=== PATIENT | female | born 1960 | race Caucasian/White ===

== ENCOUNTER → 2017-08-15 | Outpatient (CLI) | payer OTHER ==
[~2017-08-15] MED LIST: AMLO5TAB2 PO; Aspirin PO; CALC600T12 PO; CEPH500B PO; CYCL10TA7 PO; GING550C5 PO; GINK60CA2 PO; HYDR-2132 PO; HYDR-309 PO; IRON PO; LEVOTHYROXINE PO; MAGN250T10 PO; NAPR-1192 PO; POTA99TA21 PO; PROP40TA7 PO; SAFF176. PO; SULFAMETHOXAZOLE PO; TRAZ-187 PO; TUMERIC CURCUMIN PO; VITA400C70 PO; VITAMIN D PO
== END | disposition home or self-care (01) ==
LOC: RAH 10:23
PROVIDERS: ATTEND Nurse Practitioner Family
DX: Z01.818 Encounter for other preprocedural examination (principal); E78.2 Mixed hyperlipidemia; I10 Essential (primary) hypertension; E03.8 Other specified hypothyroidism
CPT/HCPCS: 71046

== ENCOUNTER 2021-05-11 07:52 | Day surgery (SDC) | payer OTHER ==
[2021-05-08 10:11] LABS: BASOPHILS % (AUTO) 0.6 % (0.0-5.0); EOSINOPHILS % (AUTO) 4.6 % (0.0-8.0); HEMATOCRIT 39.5 % (36-48); LYMPHOCYTES % (AUTO) 28.6 % (21.0-51.0); MEAN CORPUSCULAR HEMOGLOBIN 31.9 pg (27.0-33.0); MEAN CORPUSCULAR HGB CONC 33.4 g/dL (32.0-36.0); MEAN CORPUSCULAR VOLUME 95.4 fL (79-99); MONOCYTES % (AUTO) 7.7 % (3.0-13.0); NEUTROPHILS % (AUTO) 58.1 % (40.0-77.0); PLATELET COUNT (AUTO) 183 K/uL (130-400); RED BLOOD CELL COUNT(AUTO) 4.14 MIL/uL (4.00-5.50); RED CELL DISTRIBUTION WIDTH 14.7 % (11.0-15.5)
[2021-05-08 10:20] LABS: POTASSIUM 4.4 mmol/L (3.5-5.1)
[2021-05-08 11:44] VITALS: BP 154/64
[2021-05-11] VITALS (14 sets, daily range): BP systolic 113–167; BP diastolic 53–80
[~2021-05-11] VITALS: Ht 167.6 cm; Wt 155.2 kg
[~2021-05-11 07:52] MED LIST changes: -AMLO5TAB2 PO; +ARTICHOKE PO; +ASPI-1197 PO; -Aspirin PO; +BEETS PO; -CALC600T12 PO; -CEPH500B PO; +CINNAMON PO; -CYCL10TA7 PO; +FISH OIL PO; -GING550C5 PO; -GINK60CA2 PO; -HYDR-2132 PO; -HYDR-309 PO; -IRON PO; -LEVOTHYROXINE PO; -MAGN250T10 PO; -NAPR-1192 PO; -POTA99TA21 PO; -PROP40TA7 PO; -SAFF176. PO; -SULFAMETHOXAZOLE PO; -TRAZ-187 PO; -TUMERIC CURCUMIN PO; +VITA-164 PO; -VITA400C70 PO; +VITAMIN B12 PO; +VITAMIN C PO; +VITAMIN K PO
[2021-05-11] MEDS: CEFAZOLIN SODIUM 1 GM VIAL IVP SCH ×2 (08:00→10:29)
[2021-05-11] MEDS ORDERED: LACTATED RINGERS 1000ML 1,000 ML IV ONE (08:09)
[2021-05-11] MEDS ORDERED: EPINEPHRINE 1 MG/ML 30ML VIAL IJ ONE (08:47)
[2021-05-11] MEDS ORDERED: GLYCOPYRROLATE 1 MG/5 ML SYRINGE ONE (09:32)
[2021-05-11] MEDS ORDERED: PROPOFOL 10 MG/ML 20ML VIAL IV ONE ×2 (09:32)
[2021-05-11] MEDS ORDERED: ROCURONIUM 10MG/1ML SYR 10 MG/ML ML ONE (09:33)
[2021-05-11] MEDS ORDERED: MIDAZOLAM HCL 1 MG/ML 2ML VIAL ONE (09:33)
[2021-05-11] MEDS ORDERED: FENTANYL CITRATE PF 50 MCG/1 ML 5ML AMP IV ONE (09:34)
[2021-05-11] MEDS ORDERED: ROPIVACAINE 0.5% 5MG/ML 30ML IJ ONE (09:39)
[2021-05-11] MEDS ORDERED: FAMOTIDINE 20MG VIAL IV ONE (09:45)
[2021-05-11] MEDS ORDERED: ONDANSETRON 4MG INJ ONE (10:37)
[2021-05-11] MEDS ORDERED: EPHEDRINE SULFATE 50 MG/ML AMPULE ONE (10:43)
[2021-05-11] MEDS ORDERED: CEFAZOLIN SODIUM 1 GM VIAL ONE (11:44)
[2021-05-11] MEDS ORDERED: NEOSTIGMINE 5MG/5ML SYR IV ONE (12:27)
[2021-05-11] MEDS ORDERED: HYDR-4060 PO (12:33)
[2021-05-11] MEDS ORDERED: CEPH500B PO (12:33)
[2021-05-11] MEDS ORDERED: MELO-108 PO (12:33)
== END 2021-05-11 14:30 | disposition home or self-care (01) ==
LOC: DAH 07:52
PROVIDERS: ATTEND Orthopaedic Surgery
DX: M75.122 Complete rotator cuff tear or rupture of left shoulder, not specified as traumatic (principal); Z20.822 Contact with and (suspected) exposure to COVID-19; M25.812 Other specified joint disorders, left shoulder; G89.29 Other chronic pain; I12.9 Hypertensive chronic kidney disease with stage 1 through stage 4 chronic kidney disease, or unspecified chronic kidney disease; N18.9 Chronic kidney disease, unspecified; G47.33 Obstructive sleep apnea (adult) (pediatric); E03.9 Hypothyroidism, unspecified; E78.00 Pure hypercholesterolemia, unspecified; M19.90 Unspecified osteoarthritis, unspecified site; E78.5 Hyperlipidemia, unspecified; E66.01 Morbid (severe) obesity due to excess calories; K21.9 Gastro-esophageal reflux disease without esophagitis; Z90.710 Acquired absence of both cervix and uterus; Z98.890 Other specified postprocedural states; Z90.49 Acquired absence of other specified parts of digestive tract; Z82.49 Family history of ischemic heart disease and other diseases of the circulatory system; Z79.899 Other long term (current) drug therapy; Z79.01 Long term (current) use of anticoagulants; Z68.43 Body mass index [BMI] 50.0-59.9, adult
CPT/HCPCS: 23130; 23412; 36415; 64415; 76942; 80048; 85025; 87635; A4215; A4221; A4222; A4223; A4565; A4600; A4649 ×3; A4663; A4930; A5120; A6204; C1713 ×2; C9803; G0168; J0171; J0690 ×2; J2250; J2405; J2704; J2710; J2795; J3010; J3490 ×3; J7030; J7120

== ENCOUNTER → 2021-07-03 | Outpatient (CLI) | payer OTHER ==
[~2021-07-03] MED LIST changes: +CEPH500B PO; +HYDR-4060 PO; +MELO-108 PO
== END | disposition home or self-care (01) ==
LOC: RAH 09:15
PROVIDERS: ATTEND Orthopaedic Surgery
DX: M75.102 Unspecified rotator cuff tear or rupture of left shoulder, not specified as traumatic (principal)
CPT/HCPCS: 73221

== ENCOUNTER 2021-07-30 06:23 | Day surgery (SDC) | payer OTHER ==
[2021-07-28 10:44] LABS: BASOPHILS % (AUTO) 0.7 % (0.0-5.0); EOSINOPHILS % (AUTO) 4.2 % (0.0-8.0); HEMATOCRIT 40.9 % (36-48); LYMPHOCYTES % (AUTO) 23.9 % (21.0-51.0); MEAN CORPUSCULAR HEMOGLOBIN 30.4 pg (27.0-33.0); MEAN CORPUSCULAR HGB CONC 31.3 g/dL (32.0-36.0); MEAN CORPUSCULAR VOLUME 97.1 fL (79-99); MONOCYTES % (AUTO) 7.3 % (3.0-13.0); NEUTROPHILS % (AUTO) 63.5 % (40.0-77.0); PLATELET COUNT (AUTO) 227 K/uL (130-400); RED BLOOD CELL COUNT(AUTO) 4.21 MIL/uL (4.00-5.50); WHITE BLOOD COUNT (AUTO) 8.5 K/uL (4.8-10.8)
[2021-07-28 10:51] LABS: CREATININE 1.2 mg/dL (0.5-1.5); POTASSIUM 4.5 mmol/L (3.5-5.1)
[2021-07-29 11:38] VITALS: BP 153/68
[~2021-07-30] VITALS: Ht 167.6 cm; Wt 154.9 kg
[2021-07-30] VITALS (21 sets, daily range): BP systolic 102–145; BP diastolic 32–75
[2021-07-30] MEDS: CEFAZOLIN SODIUM 1 GM VIAL IVP SCH ×2 (06:00→09:50)
[~2021-07-30 06:23] MED LIST changes: -CEPH500B PO; -HYDR-4060 PO; +LOSA50TA64 PO; -MELO-108 PO; +MONT-39 PO
[2021-07-30] MEDS ORDERED: LACTATED RINGERS 1000ML 1,000 ML IV ONE (07:21)
[2021-07-30] MEDS ORDERED: CEFAZOLIN SODIUM 1 GM VIAL ONE (07:58)
[2021-07-30] MEDS ORDERED: FAMOTIDINE 20MG VIAL IV ONE (08:28)
[2021-07-30] MEDS ORDERED: ROPIVACAINE 0.5% 5MG/ML 30ML IJ ONE (08:34)
[2021-07-30] MEDS ORDERED: LIDOCAINE PF 100MG/5ML (2%) SYRINGE 5ML ONE (08:37)
[2021-07-30] MEDS ORDERED: SUCCINYLCHOLINE CHLORIDE 20 MG/ML 10 ML VIAL ONE (08:37)
[2021-07-30] MEDS ORDERED: MIDAZOLAM HCL 1 MG/ML 2ML VIAL ONE (08:38)
[2021-07-30] MEDS ORDERED: FENTANYL CITRATE PF 50 MCG/1 ML 2ML VIAL ONE (08:38)
[2021-07-30] MEDS ORDERED: PROPOFOL 10 MG/ML 20ML VIAL IV ONE (08:38)
[2021-07-30] MEDS ORDERED: ROCURONIUM 10MG/1ML SYR 10 MG/ML ML ONE (08:38)
[2021-07-30] MEDS ORDERED: EPHEDRINE SULFATE 50 MG/ML AMPULE ONE (10:00)
[2021-07-30] MEDS ORDERED: CEPH500B PO (11:03)
[2021-07-30] MEDS ORDERED: HYDR-4060 PO (11:03)
[2021-07-30] MEDS ORDERED: NEOSTIGMINE 5MG/5ML SYR IV ONE (11:17)
[2021-07-30] MEDS ORDERED: GLYCOPYRROLATE 1 MG/5 ML SYRINGE ONE (11:17)
== END 2021-07-30 14:45 | disposition home or self-care (01) ==
LOC: DAH 06:23
PROVIDERS: ATTEND Orthopaedic Surgery
DX: M75.122 Complete rotator cuff tear or rupture of left shoulder, not specified as traumatic (principal); M25.812 Other specified joint disorders, left shoulder; I10 Essential (primary) hypertension; E66.01 Morbid (severe) obesity due to excess calories; E78.00 Pure hypercholesterolemia, unspecified; M19.90 Unspecified osteoarthritis, unspecified site; E03.9 Hypothyroidism, unspecified; Z79.899 Other long term (current) drug therapy; Z90.710 Acquired absence of both cervix and uterus; Z90.49 Acquired absence of other specified parts of digestive tract; Z98.890 Other specified postprocedural states; Z82.49 Family history of ischemic heart disease and other diseases of the circulatory system; Z79.01 Long term (current) use of anticoagulants
CPT/HCPCS: 29822; 29824; 36415; 64415; 76942; 80048; 85025; 87635; A4213; A4215; A4221; A4222; A4223; A4565; A4600; A4663; A5120; A6204; C9803; G0168; J0330; J0690 ×2; J2001; J2250; J2704; J2710; J2795; J3010; J3490 ×3; J7120 ×2

== ENCOUNTER 2023-04-04 19:54 | Observation (INO) | payer OTHER ==
[~2023-04-04] VITALS: Ht 165.1 cm; Wt 157.0 kg
[~2023-04-04 19:54] MED LIST changes: -ARTICHOKE PO; -BEETS PO; -CINNAMON PO; -FISH OIL PO; +HYDR-4060 PO; +MELO-108 PO; +PRAV10TA39 PO; +TRAZ-185 PO; -VITA-164 PO; -VITAMIN B12 PO; -VITAMIN C PO; -VITAMIN D PO; -VITAMIN K PO
[2023-04-04 23:16] LABS: CREATININE 1.2 mg/dL (0.5-1.5); POTASSIUM 5.1 mmol/L (3.5-5.1)
[2023-04-04 23:21] LABS: ALBUMIN 3.4 g/dL (3.5-5.0); BASOPHILS # (AUTO) 0.05 K/uL (0.00-0.20); BASOPHILS % (AUTO) 0.4 % (0.0-5.0); BILIRUBIN,TOTAL 0.5 mg/dL (0.2-1.0); EOSINOPHILS # (AUTO) 0.15 K/uL (0.00-0.70); EOSINOPHILS % (AUTO) 1.2 % (0.0-8.0); HEMATOCRIT 45.9 % (36-48); IMMATURE GRANULOCYTE ABSOLUTE 0.04 K/uL (0-1); LYMPHOCYTES # (AUTO) 1.8 K/uL (1.0-4.8); MEAN CORPUSCULAR HEMOGLOBIN 31.9 pg (27.0-33.0); MEAN CORPUSCULAR HGB CONC 32.7 g/dL (32.0-36.0); MEAN CORPUSCULAR VOLUME 97.7 fL (79-99); MONOCYTES # (AUTO) 0.9 K/uL (0.1-1.0); MONOCYTES % (AUTO) 7.3 % (3.0-13.0); NEUTROPHILS # (AUTO) 9.2 K/uL (1.8-7.7); NEUTROPHILS % (AUTO) 75.8 % (40.0-77.0); PLATELET COUNT (AUTO) 203 K/uL (130-400); RED CELL DISTRIBUTION WIDTH 14.9 % (11.0-15.5); TOTAL PROTEIN, SERUM 7.7 g/dL (6.0-8.3); WHITE BLOOD COUNT (AUTO) 12.1 K/uL (4.8-10.8)
[2023-04-05 03:24] LABS: APPEARANCE,URINE CLEAR (CLEAR); BILIRUBIN,URINE NEGATIVE (NEGATIVE); COLOR,URINE LIGHT-YELLOW (YELLOW); GLUCOSE, URINE (UA) NEGATIVE (NEGATIVE); KETONES,URINE NEGATIVE (NEGATIVE); LEUKOCYTE ESTERASE ,URINE NEGATIVE Leu/uL (NEGATIVE); NITRATE,URINE NEGATIVE (NEGATIVE); OCCULT BLOOD,URINE NEGATIVE (NEGATIVE); PH,URINE 5.5 (5.0-8.0); PROTEIN,URINE NEGATIVE (NEGATIVE); UROBILINOGEN,URINE 0.2 mg/dL (0.2-1.0)
[2023-04-05 03:25] LABS: ADD UA MICROSCOPIC NO
[2023-04-05] MEDS ORDERED: IOHEXOL 350 MG/ML 100ML INFUS..BTL IV ONE (04:09)
[2023-04-05] MEDS: ONDANSETRON 4MG INJ IVP ONE (05:22)
[2023-04-05] MEDS: 0.9%NACL 1000ML 1,000 ML IV ONE (05:22)
[2023-04-05] MEDS: ONDANSETRON 4MG INJ ONE (07:01)
[2023-04-05] MEDS: LOSARTAN 50 MG TABLET PO SCH (10:52)
[2023-04-05] MEDS: ASPIRIN 81 MG EC TAB PO ONE (10:52)
[2023-04-05 11:01] VITALS: BP 127/63; PULSE 60; RESP 18
[2023-04-05] MEDS: HEPARIN 5,000 UNIT VIAL SQ SCH (11:15)
[2023-04-05 11:24] LABS: THYROID STIMULATING HORMONE 0.72 uIU/mL (0.36-3.74)
[2023-04-05 15:27] VITALS: O2SAT 94
[2023-04-05 16:00] VITALS: BP 129/62; PULSE 62; RESP 16
[2023-04-05] MEDS: FAMOTIDINE 20MG TAB PO SCH (20:32)
[2023-04-05] MEDS: ATORVASTATIN 40 MG TABLET PO SCH (20:32)
[2023-04-05] MEDS: ACETAMINOPHEN 325 MG TAB PO PRN (21:51)
[2023-04-06] MEDS ORDERED: ATOR40TA71 PO (00:02)
[2023-04-06] MEDS ORDERED: TRAZ-185 PO (00:02)
[2023-04-06] MEDS ORDERED: METH-811 PO (00:02)
[2023-04-06] MEDS ORDERED: LEVO25CA4 PO (00:02)
[2023-04-06] MEDS ORDERED: FURO40TA5 PO (00:02)
[2023-04-06 00:34] VITALS: BP 144/76; PULSE 82; RESP 22
[2023-04-06 01:04] VITALS: O2SAT 97
[2023-04-06 04:30] VITALS: BP 136/66; PULSE 66; RESP 18
[2023-04-06 08:00] VITALS: O2SAT 93
[2023-04-06 08:02] VITALS: BP 149/73; PULSE 67; RESP 18
[2023-04-06] MEDS ORDERED: FUROSEMIDE 20 MG TABLET PO SCH (09:00)
[2023-04-06] MEDS ORDERED: ASPIRIN 81 MG EC TAB PO SCH (09:00)
[2023-04-06] MEDS ORDERED: LOSARTAN 50 MG TABLET PO SCH (09:00)
[2023-04-06] MEDS ORDERED: FAMO20TA8 PO (20:14)
== END 2023-04-06 09:30 | disposition still patient (30) ==
LOC: EDH 19:54 → EDHIP 04-05 09:04 → INTOOBSV 04-05 09:04 → 3BH 04-05 23:52
PROVIDERS: ADMIT Hospitalist; ATTEND Hospitalist
DX: I20.0 Unstable angina (principal); I10 Essential (primary) hypertension; E78.00 Pure hypercholesterolemia, unspecified; E03.9 Hypothyroidism, unspecified; E66.01 Morbid (severe) obesity due to excess calories; E86.0 Dehydration; I34.0 Nonrheumatic mitral (valve) insufficiency; Q33.3 Agenesis of lung; G47.30 Sleep apnea, unspecified; Z79.82 Long term (current) use of aspirin; Z79.899 Other long term (current) drug therapy; Z98.890 Other specified postprocedural states; Z68.43 Body mass index [BMI] 50.0-59.9, adult; Z90.49 Acquired absence of other specified parts of digestive tract
CPT/HCPCS: 99285; 74177; 84484 ×3; 80053; 85025; 83605; 93005 ×2; 93306; 96374; 71045; 96361; 80061; 84443; 83880; 83690; 81003; 36415 ×2; 96372; J2405; J1644 ×2; Q9967; G0378